=== PATIENT | male | born 1960 | race Two or more races ===

== ENCOUNTER 2022-05-02 10:16 | Observation (INO) | payer BC ==
--- NOTE | 2022-05-02 10:44 | ED ---
General Adult HPI - General Chief complaint: Recheck/Abnormal Lab/Rx Stated complaint: Recheck/Abnormal CT Time Seen by Provider: 05/02/22 10:24 Source: patient Mode of arrival: ambulatory Limitations: no limitations - History of Present Illness Initial comments: Dictation was produced using [employer] dictation software. please excuse any grammatical, word or spelling errors. Chief Complaint: 61-year-old male presents emergency department for abnormal CT History of Present Illness: 61-year-old male is instructed by his primary care doctor to come to the emergency department for an abnormal CT that was performed 3 days ago. Patient states that he had a CT performed ordered by his primary care physician for respiratory symptoms. He has been having a productive cough for the last 3 weeks. Patient had a CT performed on Thursday or Thursday. He was notified of results and was told to present to the emergency department soon as the results were available however patient delayed coming to the ER until today. Patient has any constitutional symptoms. Denies any recent travel. Denies any chest pain other symptoms may reflect pneumonia versus lung cancer. The ROS documented in this emergency department record has been reviewed and confirmed by me. Those systems with pertinent positive or negative responses have been documented in the HPI. All other systems are other negative and/or noncontributory. PHYSICAL EXAM: General Impression: Alert and oriented x3, not in acute distress HEENT: Normocephalic atraumatic, extra-ocular movements intact, pupils equal and reactive to light bilaterally, mucous membranes moist. Cardiovascular: Heart regular rate and rhythm Chest: Able to complete full sentences, no retractions, no tachypnea, clear to auscultation bilaterally Abdomen: abdomen soft, non-tender, non-distended, no organomegaly Musculoskeletal: Pulses present and equal in all extremities, no peripheral edema Motor: no focal deficits noted Neurological: CN II-XII grossly intact, no focal motor or sensory deficits noted Skin: Intact with no visualized rashes Psych: Normal affect and mood ED course: 61-year-old male presents emergency Department with abnormal computed tomography scan of the chest performed 3-4 days ago. She was performed for persistent cough. Patient was told that his symptoms may be secondary to pneumonia versus lung cancer. Vital signs upon arrival are within acceptable limits. Patient presents with the CT disc that is loaded to our PACS system. Chest x-ray obtained showing mass versus pneumonia at the right apex. Patient developed a bedside at 12:45 PM found to be stable medical condition. Patient denies any constitutional symptoms. Likely patient's clinical presentation is secondary to lung mass. Patient will be admitted with consultation to pulmonology. - Related Data Home Medications Medication Instructions Recorded Confirmed EPINEPHrine (Auto Inject) [Epipen] 0.3 mg IM ONCE PRN 05/02/22 05/02/22 Allergies Allergy/AdvReac Type Severity Reaction Status Date / Time bee venom protein (honey bee) Allergy Anaphylaxis Verified 05/02/22 12:01 Review of Systems ROS Statement: Those systems with pertinent positive or pertinent negative responses have been documented in the HPI. ROS Other: All systems not noted in ROS Statement are negative. Past Medical History Past Medical History: Hypertension, Pneumonia Past Surgical History: Hernia Repair, Orthopedic Surgery Past Psychological History: No Psychological Hx Reported Smoking Status: Current every day smoker, Heavy tobacco smoker Past Alcohol Use History: Daily Past Drug Use History: None Reported General Exam Limitations: no limitations Course Vital Signs 05/02/22 05/02/22 05/02/22 10:17 13:49 14:40 Temperature 98.1 F Pulse Rate 91 68 72 Respiratory 18 16 16 Rate Blood Pressure 164/105 151/100 142/98 O2 Sat by Pulse 95 95 96 Oximetry Medical Decision Making - Lab Data Result diagrams: 05/03/22 10:00 05/03/22 10:00 Lab Results 05/02/22 05/02/22 05/02/22 Range/Units 10:56 10:56 12:31 WBC 8.3 (3.8-10.6) k/uL RBC 4.95 (4.30-5.90) m/uL Hgb 16.0 (13.0-17.5) gm/dL Hct 47.4 (39.0-53.0) % MCV 95.6 (80.0-100.0) fL MCH 32.4 (25.0-35.0) pg MCHC 33.9 (31.0-37.0) g/dL RDW 12.2 (11.5-15.5) % Plt Count 449 (150-450) k/uL MPV 7.1 Neutrophils % 73 % Lymphocytes % 17 % Monocytes % 5 % Eosinophils % 4 % Basophils % 1 % Neutrophils # 6.0 (1.3-7.7) k/uL Lymphocytes # 1.4 (1.0-4.8) k/uL Monocytes # 0.4 (0-1.0) k/uL Eosinophils # 0.3 (0-0.7) k/uL Basophils # 0.1 (0-0.2) k/uL PT 10.1 (9.0-12.0) sec INR 0.9 (<1.2) APTT 25.5 (22.0-30.0) sec Sodium 138 (137-145) mmol/L Potassium 3.2 L (3.5-5.1) mmol/L Chloride 117 H (98-107) mmol/L Carbon Dioxide 19 L (22-30) mmol/L Anion Gap 2 mmol/L BUN 11 (9-20) mg/dL Creatinine 0.49 L (0.66-1.25) mg/dL Est GFR (CKD-EPI)AfAm >90 (>60 ml/min/1.73 sqM) Est GFR (CKD-EPI)NonAf >90 (>60 ml/min/1.73 sqM) Glucose 70 L (74-99) mg/dL Calcium 5.5 L* (8.4-10.2) mg/dL Procalcitonin (0.02-0.09) ng/mL 05/02/22 Range/Units 12:31 WBC (3.8-10.6) k/uL RBC (4.30-5.90) m/uL Hgb (13.0-17.5) gm/dL Hct (39.0-53.0) % MCV (80.0-100.0) fL MCH (25.0-35.0) pg MCHC (31.0-37.0) g/dL RDW (11.5-15.5) % Plt Count (150-450) k/uL MPV Neutrophils % % Lymphocytes % % Monocytes % % Eosinophils % % Basophils % % Neutrophils # (1.3-7.7) k/uL Lymphocytes # (1.0-4.8) k/uL Monocytes # (0-1.0) k/uL Eosinophils # (0-0.7) k/uL Basophils # (0-0.2) k/uL PT (9.0-12.0) sec INR (<1.2) APTT (22.0-30.0) sec Sodium (137-145) mmol/L Potassium (3.5-5.1) mmol/L Chloride (98-107) mmol/L Carbon Dioxide (22-30) mmol/L Anion Gap mmol/L BUN (9-20) mg/dL Creatinine (0.66-1.25) mg/dL Est GFR (CKD-EPI)AfAm (>60 ml/min/1.73 sqM) Est GFR (CKD-EPI)NonAf (>60 ml/min/1.73 sqM) Glucose (74-99) mg/dL Calcium (8.4-10.2) mg/dL Procalcitonin 0.03 (0.02-0.09) ng/mL Disposition Clinical Impression: Lung mass Disposition: ADMITTED IP TO THIS HOSP Condition: Fair
[2022-05-02 11:18] LABS: Basophils # (A) 0.1 k/uL (0-0.2); Basophils % (A) 1 %; Eosinophils # (A) 0.3 k/uL (0-0.7); Eosinophils % (A) 4 %; HCT 47.4 % (39.0-53.0); Lymphocytes # (A) 1.4 k/uL (1.0-4.8); Lymphocytes % (A) 17 %; MCH 32.4 pg (25.0-35.0); MCHC 33.9 g/dL (31.0-37.0); MCV 95.6 fL (80.0-100.0); Mean Platelet Volume 7.1; Monocytes # (A) 0.4 k/uL (0-1.0); Monocytes % (A) 5 %; Neutrophils % (A) 73 %; Platelet Count 449 k/uL (150-450); RBC 4.95 m/uL (4.30-5.90); RDW 12.2 % (11.5-15.5); WBC 8.3 k/uL (3.8-10.6)
--- NOTE | 2022-05-02 11:45 | XR ---
EXAMINATION TYPE: XR chest 1V portable DATE OF EXAM: 05/02/2022 COMPARISON: None INDICATION: Abnormal CT TECHNIQUE: Single frontal view of the chest is obtained. FINDINGS: The heart size is normal. The pulmonary vasculature is normal. There appears to be a cavitary lesion with an air-fluid level in the right upper lung field. Remainde r the lungs appear clear. IMPRESSION: 1. Nonspecific density right apex can be of mass and/or air-fluid level. Neoplasm and infection withi n the differential.
[2022-05-02 12:21] LABS: INR 0.9 (<1.2); Partial Thromboplastin Time 25.5 sec (22.0-30.0); Prothrombin Time 10.1 sec (9.0-12.0)
[2022-05-02] MEDS ORDERED: ONDANSETRON 4 MG/2 ML VIAL IVP PRN (12:36)
[2022-05-02] MEDS ORDERED: NALOXONE 0.4 MG/ML 1 ML VIAL IV PRN (12:36)
[2022-05-02 13:04] LABS: African American GFR (CKD) >90 (>60 ml/min/1.73 sqM); Anion Gap 2 mmol/L; Blood Urea Nitrogen 11 mg/dL (9-20); Carbon Dioxide 19 mmol/L (22-30); Chloride 117 mmol/L (98-107); Glucose 70 mg/dL (74-99); Non-African American GFR(CKD) >90 (>60 ml/min/1.73 sqM); Sodium 138 mmol/L (137-145)
[2022-05-02 13:31] LABS: Calcium 5.5 mg/dL (8.4-10.2)
[2022-05-02 13:32] LABS: Potassium 3.2 mmol/L (3.5-5.1)
--- NOTE | 2022-05-02 14:14 | P.CNPUL ---
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 Cough was productive initially with thick yellow and green sputum at times brownish in color, and recently his sputum has become whitish in color. Patient had minimal shortness of breath on exertion, no fever no chills, no hemoptysis, no chest pain. CT of the chest done on outpatient basis showed significant bullous disease in the right upper lobe and what seems to be a cavitating mass or a lung and the right upper lobe/infected bulla with air-fluid level. Advised by his primary care physician to come to the ER. Patient was brought in, admitted and this consult was initiated. During my evaluation, the patient was basically asymptomatic. He had no fever, no chills, no hemoptysis, and his O2 saturation was 95% on room air. Patient was started on antibiotics empirically sputum cultures are pending, pro-calcitonin level is pending, CBC showed no evidence of leukocytosis, his electrolytes are basically unremarkable except for low potassium of 3.2, patient had low calcium of 5.5. Review of Systems Constitutional: Minimal weight loss no fever no chills HEENT: Negative Pulmonary: As noted in HPI mostly cough Cardiac: Negative GI: Negative Genitourinary: Negative Muscular skeletal: Negative Psychiatric: Negative Endocrine: Negative Neurologic: Negative Skin: No Past Medical History Past Medical History: Hypertension, Pneumonia Past Surgical History: Hernia Repair, Orthopedic Surgery Past Psychological History: No Psychological Hx Reported Smoking Status: Current every day smoker, Heavy tobacco smoker Past Alcohol Use History: Daily Past Drug Use History: None Reported Medications and Allergies Home Medications Medication Instructions Recorded Confirmed Type EPINEPHrine (Auto Inject) [Epipen] 0.3 mg IM ONCE PRN 05/02/22 05/02/22 History Allergies Allergy/AdvReac Type Severity Reaction Status Date / Time bee venom protein (honey bee) Allergy Anaphylaxis Verified 05/02/22 12:01 Physical Exam Vitals: Vital Signs Temp Pulse Resp BP Pulse Ox 05/02/22 13:49 68 16 151/100 95 05/02/22 10:17 98.1 F 91 18 164/105 95 Intake and Output 05/01/22 05/02/22 05/02/22 22:59 06:59 14:59 Other: Weight 75.75 kg Physical Exam: Revealed a 61-year-old white male in no distress on room air. Head: Atraumatic, normocephalic. HEENT:[Neck is supple.] [No neck masses.] [No thyromegaly.] [No JVD.] Chest: [Clear throughout, no crackles, no rhonchi, no wheezes.] Cardiac Exam: [Normal S1 and S2, no S3 gallop, no murmur.] Abdomen: [Soft, nontender, no megaly, no rebound, no guarding, normal bowel sounds.] Extremities: [No clubbing, no edema, no cyanosis.] Neurological Exam: [No focal neurologic deficit.] Alert oriented 3 Psychiatric: Normal mood, affect and normal mental status examination. Skin: No rashes. Results - Laboratory Findings CBC and BMP: 05/02/22 10:56 05/02/22 12:31 PT/INR, D-dimer PT 10.1 sec (9.0-12.0) 05/02/22 10:56 INR 0.9 (<1.2) 05/02/22 10:56 Abnormal lab findings: Abnormal Labs 05/02/22 12:31 Potassium 3.2 L Chloride 117 H Carbon Dioxide 19 L Creatinine 0.49 L Glucose 70 L Calcium 5.5 L* - Diagnostic Findings CT scan - chest: image reviewed (As noted in HPI) Assessment and Plan Assessment: Impression: Right upper lobe cavitary lesion, exact etiology is not clear, however the differential diagnoses includes lung abscess, infected bulla, cavitating malignancy involving the right upper lobe. 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 And close follow-up on outpatient basis We will continue to follow. Time with Patient: Greater than 30
[2022-05-02] MEDS: SODIUM CHLORIDE 0.9% 1,000 ML IV SCH (16:07)
[2022-05-02] MEDS: PIPERACILLIN-TAZOBACTAM 3.375 GM in SODIUM CHLORIDE 0.9% 100 ML IVPB SCH ×2 (16:08→23:43)
[2022-05-02] MEDS: IPRATROPIUM-ALBUTEROL 3 ML NEB INHALATION SCH ×2 (16:25→19:43)
[2022-05-03] MEDS: IPRATROPIUM-ALBUTEROL 3 ML NEB INHALATION SCH ×4 (07:14→19:05)
--- NOTE | 2022-05-03 07:19 | P.CONS ---
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 with productive thick yellow sputum that has been going on for almost a month patient apparently did have a CT of the chest done at [facility] with the patient was noticed to have a cavitating mass right upper lobe with air-fluid level concerning for possible abscess and the patient was advised to go to the ER, patient currently denies having any fever or any chills patient main symptom remains to be cough moderate intensity and is bringing up some purulent sputum no hemoptysis denies any pleuritic chest pain the patient denies having any choking on the food no nausea no vomiting no abdominal pain or any diarrhea on presentation to the hospital the patient has been afebrile and no fever have been recorded subsequently patient did have a normal white count with no left shift creatinine is normal calcium was low procalcitonin normal chronic culture was negative patient did have a chest x-ray nonspecific density right apex cannot be mass and or air-fluid level patient was started on Zosyn has been admitted to the hospital infectious disease was consulted for further management of antibiotic therapy Review of Systems Positive point has been mentioned in the HPI rest of the systems are negative Past Medical History Past Medical History: Hypertension, Pneumonia Past Surgical History: Hernia Repair, Orthopedic Surgery Past Psychological History: No Psychological Hx Reported Smoking Status: Current every day smoker, Heavy tobacco smoker Past Alcohol Use History: Daily Past Drug Use History: None Reported Medications and Allergies Home Medications Medication Instructions Recorded Confirmed Type EPINEPHrine (Auto Inject) [Epipen] 0.3 mg IM ONCE PRN 05/02/22 05/02/22 History Allergies Allergy/AdvReac Type Severity Reaction Status Date / Time bee venom protein (honey bee) Allergy Anaphylaxis Verified 05/02/22 12:01 Physical Exam Vitals: Vital Signs Temp Pulse Resp BP Pulse Ox 05/02/22 13:49 68 16 151/100 95 05/02/22 10:17 98.1 F 91 18 164/105 95 Intake and Output 05/01/22 05/02/22 05/02/22 22:59 06:59 14:59 Other: Weight 75.75 kg GENERAL DESCRIPTION: Middle-aged male lying in bed, no distress. No tachypnea or accessory muscle of respiration use. HEENT: Shows Pallor , no scleral icterus. Oral mucous membrane is dry. No pharyngeal erythema or thrush NECK: Trachea central, no thyromegaly. LUNGS: Unlabored breathing. Decreased intensity of breath sounds. No wheeze or crackle. HEART: S1, S2, regular rate and rhythm. No loud murmur ABDOMEN: Soft, no tenderness , guarding or rigidity, no organomegaly EXTREMITIES: No edema of feet. SKIN: No rash, no masses palpable. NEUROLOGICAL: The patient is awake, alert, oriented x3, mood and affect normal. Results CBC & Chem 7: 05/02/22 10:56 05/02/22 12:31 Labs: Abnormal Lab Results - Last 24 Hours (Table) 05/02/22 Range/Units 12:31 Potassium 3.2 L (3.5-5.1) mmol/L Chloride 117 H (98-107) mmol/L Carbon Dioxide 19 L (22-30) mmol/L Creatinine 0.49 L (0.66-1.25) mg/dL Glucose 70 L (74-99) mg/dL Calcium 5.5 L* (8.4-10.2) mg/dL Assessment and Plan (1) Abnormal CT of the chest Current Visit: Yes Status: Acute Code(s): R93.89 - ABNORMAL FINDINGS ON DX IMAGING OF OTH BODY STRUCTURES SNOMED Code(s): 79411853794791314 Plan: 1patient presented to hospital with abnormal CT done in the outpatient setting with evidence of possible right upper lobe mass with air-fluid level in this patient with significant history of smoking no fever elevated white count and normal procalcitonin high clinical suspicious for malignancy. 2sputum culture has been requested and will be followed. 3patient will benefit from bronchoscopy with transbronchial biopsy as well as cultures. 4continue with empiric Zosyn while awaiting further work-up to be completed. We will follow on clinical condition and cultures to further adjust medication if needed Thank you for this consultation will follow this patient along with you Time with Patient: Greater than 30
[2022-05-03] MEDS: PIPERACILLIN-TAZOBACTAM 3.375 GM in SODIUM CHLORIDE 0.9% 100 ML IVPB SCH ×3 (07:49→23:28)
--- NOTE | 2022-05-03 08:34 | XR ---
EXAMINATION TYPE: XR chest 1V portable DATE OF EXAM: 05/03/2022 COMPARISON: 05/02/2022 INDICATION: Right upper lobe pneumonia TECHNIQUE: Single frontal view of the chest is obtained. FINDINGS: The heart size is normal. The pulmonary vasculature is normal. Right upper lobe consolidation is again evident. The air-fluid level is not as apparent. There is air -fluid level at the right base which appears better visualized on the current exam. This is not evide nt on the outside CT of 04/29/2022. Differential includes infection and mass. IMPRESSION: 1. Right upper lobe consolidation or mass. Better visualized may be an air-fluid level of the right b ase. Additional workup is recommended.
[2022-05-03 10:24] LABS: Basophils % (A) 0 %; Eosinophils # (A) 0.2 k/uL (0-0.7); Eosinophils % (A) 2 %; HCT 46.5 % (39.0-53.0); HGB 15.2 gm/dL (13.0-17.5); Lymphocytes % (A) 12 %; MCH 31.3 pg (25.0-35.0); MCHC 32.6 g/dL (31.0-37.0); Mean Platelet Volume 7.1; Monocytes # (A) 0.3 k/uL (0-1.0); Monocytes % (A) 4 %; Neutrophils # (A) 6.8 k/uL (1.3-7.7); Neutrophils % (A) 82 %; Platelet Count 421 k/uL (150-450); RBC 4.84 m/uL (4.30-5.90); WBC 8.4 k/uL (3.8-10.6)
[2022-05-03 10:33] LABS: ALT 17 U/L (4-49); AST 20 U/L (17-59); African American GFR (CKD) >90 (>60 ml/min/1.73 sqM); Albumin 3.1 g/dL (3.5-5.0); Albumin/Globulin Ratio 1.1; Alkaline Phosphatase 97 U/L (38-126); Anion Gap 6 mmol/L; Blood Urea Nitrogen 14 mg/dL (9-20); Calcium 8.3 mg/dL (8.4-10.2); Carbon Dioxide 26 mmol/L (22-30); Chloride 104 mmol/L (98-107); Globulin 2.9 g/dL; Glucose 224 mg/dL (74-99); Non-African American GFR(CKD) >90 (>60 ml/min/1.73 sqM); Potassium 3.9 mmol/L (3.5-5.1); Sodium 136 mmol/L (137-145); Total Bilirubin 0.2 mg/dL (0.2-1.3)
[2022-05-03 12:09] VITALS: BMI 22.6
--- NOTE | 2022-05-03 12:32 | P.PN ---
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 Cough was productive initially with thick yellow and green sputum at times brownish in color, and recently his sputum has become whi nahomi in color. Patient had minimal shortness of breath on exertion, no fever no chills, no hemoptysis, no chest pain. CT of the chest done on outpatient basis showed significant bullous disease in the right upper lobe and what seems to be a cavitating mass or a lung and the right upper lobe/infected bulla with air- fluid level. Advised by his primary care physician to come to the ER. Patient was brought in, admitted and this consult was initiated. During my evaluation, the patient was basically asymptomatic. He had no fever, no chills, no hemoptysis, and his O2 saturation was 95% on room air. Patient was started on antibiotics empirically sputum cultures are pending, pro-calcitonin level is pending, CBC showed no evidence of leukocytosis, his electrolytes are basically unremarkable except for low potassium of 3.2, patient had low calcium of 5.5. On 05/03/2022 patient seen in follow-up on medical surgical floor. He is resting comfortably in bed, he is on room air, pulse ox is 96%, afebrile, breathing comfortably, denies any specific complaints, no complaints of chest discomfort, vital signs have been stable. Follow-up chest x-ray today showing right upper lobe consolidation with air fluid level of the right base. Pro- calcitonin level was within normal limits at 0.03, CBC was completely within normal limits, sodium is 136, the rest of the electrolytes are within normal limits, CRP is 3.3. Patient remains on Zosyn empirically and breathing treatments. ID service is on the case, sputum culture is pending, Gram stain shows no organisms thus far, blood culture is pending Objective - Vital Signs Vital signs: Vital Signs Temp 97.9 F 05/03/22 11:29 Pulse 82 05/03/22 11:29 Resp 14 05/03/22 11:29 BP 134/85 05/03/22 11:29 Pulse Ox 96 05/03/22 11:29 FiO2 Intake & Output 05/02/22 05/03/22 05/03/22 18:59 06:59 18:59 Intake Total 296 800 Balance 296 800 Weight 75.75 kg 75.75 kg Intake: Intake, IV Titration 200 Amount Piperacillin-Tazobactam 3 200 .375 gm In Sodium Chloride 0.9% 100 ml @ 25 mls/hr IVPB Q8HR [facility] Rx# :[id number] Oral 296 600 Other: Voiding Method Toilet Toilet # Voids 1 2 - Exam GENERAL EXAM: Alert, very pleasant, 61-year-old white male resting comfortably in bed, room air with pulse ox of 96% comfortable in no apparent distress. HEAD: Normocephalic/atraumatic. EYES: Normal reaction of pupils, equal size. Conjunctiva pink, sclera white. NOSE: Clear with pink turbinates. THROAT: No erythema or exudates. NECK: No masses, no JVD, no thyroid enlargement, no adenopathy. CHEST: No chest wall deformity. Symmetrical expansion. LUNGS: Equal air entry with no crackles, wheeze, rhonchi or dullness. CVS: Regular rate and rhythm, normal S1 and S2, no gallops, no murmurs, no rubs ABDOMEN: Soft, nontender. No hepatosplenomegaly, normal bowel sounds, no guarding or rigidity. EXTREMITIES: No clubbing, no edema, no cyanosis, 2+ pulses and upper and lower extremities. MUSCULOSKELETAL: Muscle strength and tone normal. SPINE: No scoliosis or deformity SKIN: No rashes CENTRAL NERVOUS SYSTEM: Alert and oriented -3. No focal deficits, tone is normal in all 4 extremities. PSYCHIATRIC: Alert and oriented -3. Appropriate affect. Intact judgment and insight. - Labs CBC & Chem 7: 05/03/22 10:00 05/03/22 10:00 Labs: Abnormal Lab Results - Last 24 Hours (Table) 05/02/22 05/02/22 05/03/22 Range/Units 12:31 14:48 10:00 Sodium 136 L (137-145) mmol/L Potassium 3.2 L (3.5-5.1) mmol/L Chloride 117 H (98-107) mmol/L Carbon Dioxide 19 L (22-30) mmol/L Creatinine 0.49 L (0.66-1.25) mg/dL Glucose 70 L 224 H (74-99) mg/dL Calcium 5.5 L* 8.3 L (8.4-10.2) mg/dL C-Reactive Protein 3.30 H (0.00-0.80) mg/dL Total Protein 6.0 L (6.3-8.2) g/dL Albumin 3.1 L (3.5-5.0) g/dL Microbiology - Last 24 Hours (Table) 05/02/22 Unknown Gram Stain - Preliminary Sputum Sputum Culture - Preliminary Assessment and Plan Plan: Assessment: #1. Right upper lobe cavitary lesion, with unknown etiology with a differential diagnoses including a lung abscess, infected bulla, cavitating malignancy involving the right upper lobe #2. 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 Tobacco dependence syndrome #4. History of hypertension Plan: Serum pro-calcitonin level came back negative Today's labs have been reviewed, No fever or chills No growth on the sputum culture We will consider bronchoscopy with BAL on Thursday with Dr. Villegas This was discussed with the patient who was agreeable to proceed In the meantime patient will continue on antibiotics ID service recommendations We'll also need outpatient PET scan I have personally seen and examined the patient, performed the documentation and the assessment and plan as written. Number of minutes spent on the visit: [10] Time with Patient: Less than 30
[2022-05-03] MEDS ORDERED: HYDROcodone/APAP 5-325MG 1 EACH TAB PO PRN (13:23)
[2022-05-03] MEDS ORDERED: LORazepam 0.5 MG TAB PO PRN (13:23)
[2022-05-03] MEDS ORDERED: ALPRAZolam 0.25 MG TAB PO PRN (13:23)
[2022-05-03] MEDS: HEPARIN SODIUM,PORCINE/PF 5,000 UNIT/0.5 ML SYRINGE SQ SCH ×2 (14:14→19:33)
--- NOTE | 2022-05-03 15:24 | HP ---
HISTORY AND PHYSICAL CHIEF COMPLAINTS: Cough, sputum and right upper lobe lung cavitary lesion with abscess with possible HISTORY OF PRESENT ILLNESS: This 61-year-old gentleman with a past medical history of hypertension, history of pneumonia, being followed by Dr. Marin in the outpatient setting, was not feeling well for the past several days. Patient had a cough the patient came to [facility]. CT scan and chest x-ray showed right upper lobe cavitary lesion, mass versus abscess. Dr. Velasquez saw the patient and is planning bronchoscopy on Thursday. Patient is on broad-spectrum IV antibiotics. There is no history of chest pain or palpitations. PAST MEDICAL HISTORY: Past medical history includes hypertension and pneumonia. HOME MEDICATIONS: Reviewed. They include EpiPen p.r.n. ALLERGIES: BEE VENOM. FAMILY HISTORY: No history of heart disease or strokes in the family. SOCIAL HISTORY: Alcohol and smoking. REVIEW OF SYSTEMS: Fourteen-point review of systems negative except as mentioned earlier. PHYSICAL EXAMINATION: Pulse 82, blood pressure 133/84, respiration 14. HEENT: Conjunctivae normal. NECK: No jugular venous distention. CARDIOVASCULAR: S1, S2 muffled. RESPIRATION: Breath sounds diminished at the bases. A few scattered rhonchi and crackles. Expiratory wheezing. ABDOMEN: Soft, nontender. LEGS: No edema. No swelling. NERVOUS SYSTEM: No focal deficit. SKIN: No ulcer, rash, bleeding. JOINTS: No active deforming arthropathy. LABS: CBC within normal limits. Other labs are noted. ASSESSMENT: 1. Right upper lobe cavitary lesion, possibly lung abscess versus mass lesion. 2. Hypertension. 3. History of pneumonia. RECOMMENDATIONS AND DISCUSSION: In this 61-year-old gentleman who presented with multiple complex medical issues, we will monitor the patient closely. Continue the broad-spectrum IV antibiotics. Cultures. Follow closely with Pulmonary. DVT prophylaxis. Bronchoscopy and possible biopsy. Prognosis guarded. Further recommendations to follow. MMODL / IJN: [id number] / MTDD
[2022-05-03] MEDS: SODIUM CHLORIDE 0.9% 1,000 ML IV SCH (17:12)
[2022-05-03] MEDS: TEMAZEPAM 15 MG CAP PO PRN (21:06)
--- NOTE | 2022-05-03 21:59 | P.PN ---
Subjective Progress Note Date: 05/03/22 Principal diagnosis: Pneumonia versus tumor Patient is a 61 year old male with significant history of smoking, did have a workup in the outpatient setting for cough that has been going on for about a month with evidence of right upper lobe necrotic tumor versus pneumonia. On today's evaluation that is 05/03/2022, the patient denies having any fever or chills, the patient is breathing more comfortably patient denies having any chest pain he Did have a cough and is bringing up some sputum no hemoptysis. No abdominal pain and no diarrhea Objective - Vital Signs Vital signs: Vital Signs Temp 97.9 F 05/03/22 11:29 Pulse 82 05/03/22 11:29 Resp 14 05/03/22 11:29 BP 134/85 05/03/22 11:29 Pulse Ox 96 05/03/22 11:29 FiO2 Intake & Output 05/02/22 05/03/22 05/03/22 18:59 06:59 18:59 Intake Total 296 800 Balance 296 800 Weight 75.75 kg 75.75 kg Intake: Intake, IV Titration 200 Amount Piperacillin-Tazobactam 3 200 .375 gm In Sodium Chloride 0.9% 100 ml @ 25 mls/hr IVPB Q8HR [facility] Rx# :[id number] Oral 296 600 Other: Voiding Method Toilet Toilet # Voids 1 2 - Exam GENERAL DESCRIPTION: Middle-age male lying in bed in no distress RESPIRATORY SYSTEM: Unlabored breathing , decreased breath sounds at bases HEART: S1 S2 regular rate and rhythm , ABDOMEN: Soft , no tenderness EXTREMITIES: No edema feet - Labs CBC & Chem 7: 05/03/22 10:00 05/03/22 10:00 Labs: Abnormal Lab Results - Last 24 Hours (Table) 05/02/22 05/02/22 05/03/22 Range/Units 12:31 14:48 10:00 Sodium 136 L (137-145) mmol/L Potassium 3.2 L (3.5-5.1) mmol/L Chloride 117 H (98-107) mmol/L Carbon Dioxide 19 L (22-30) mmol/L Creatinine 0.49 L (0.66-1.25) mg/dL Glucose 70 L 224 H (74-99) mg/dL Calcium 5.5 L* 8.3 L (8.4-10.2) mg/dL C-Reactive Protein 3.30 H (0.00-0.80) mg/dL Total Protein 6.0 L (6.3-8.2) g/dL Albumin 3.1 L (3.5-5.0) g/dL Microbiology - Last 24 Hours (Table) 05/02/22 Unknown Gram Stain - Preliminary Sputum Sputum Culture - Preliminary Assessment and Plan (1) Abnormal CT of the chest Current Visit: Yes Status: Acute Code(s): R93.89 - ABNORMAL FINDINGS ON DX IMAGING OF OTH BODY STRUCTURES SNOMED Code(s): 95707296026014814 Plan: 1patient presented to hospital with abnormal CT done in the outpatient setting with evidence of possible right upper lobe mass with air-fluid level in this patient with significant history of smoking no fever elevated white count and normal procalcitonin high clinical suspicious for malignancy. 2sputum culture has been obtained and currently pending 3patient at that is scheduled for bronchoscopy with transbronchial biopsy as well as cultures on Thursday 4patient to continue with empiric Zosyn while awaiting further work-up to be completed. Time with Patient: Less than 30
[2022-05-04] MEDS: IPRATROPIUM-ALBUTEROL 3 ML NEB INHALATION SCH ×4 (07:09→19:30)
[2022-05-04] MEDS: HEPARIN SODIUM,PORCINE/PF 5,000 UNIT/0.5 ML SYRINGE SQ SCH ×2 (08:58→19:00)
[2022-05-04] MEDS: PIPERACILLIN-TAZOBACTAM 3.375 GM in SODIUM CHLORIDE 0.9% 100 ML IVPB SCH ×3 (09:01→23:38)
[2022-05-04] MEDS: PANTOPRAZOLE 40 MG TABLET PO SCH (09:01)
[2022-05-04 09:23] LABS: Basophils # (A) 0.08 X 10*3/uL (0.00-0.10); Basophils % (A) 0.9 %; Eosinophils # (A) 0.31 X 10*3/uL (0.04-0.35); Eosinophils % (A) 3.6 %; HGB 15.4 g/dL (13.0-17.0); Immature Grans, Automated 0.2 %; Lymphocytes # (A) 1.66 X 10*3/uL (0.90-5.00); Lymphocytes % (A) 19.5 %; MCHC 32.8 g/dL (32.0-37.0); MCV 94.6 fL (80.0-97.0); Monocytes # (A) 0.69 X 10*3/uL (0.20-1.00); Monocytes % (A) 8.1 %; NRBC Per 100 WBC 0 /100 WBCS (0.0-0.0); Neutrophils # (A) 5.75 X 10*3/uL (1.80-7.70); Neutrophils % (A) 67.7 %; Platelet Count 396 X 10*3/uL (140-440); RBC 4.97 X 10*6/uL (4.40-5.60); RDW 12.8 % (11.5-14.5); WBC 8.51 X 10*3/uL (4.50-10.00)
[2022-05-04 10:02] LABS: African American GFR (CKD) 99.7 (60.0-200.0); Anion Gap 9.6 mmol/L (10.00-18.00); BUN/Creat Ratio 13.63 Ratio (12.00-20.00); Blood Urea Nitrogen 13.1 mg/dL (9.0-27.0); Calcium 8.9 mg/dL (8.7-10.3); Carbon Dioxide 24.3 mmol/L (20.0-27.5); Non-African American GFR(CKD) 86.1 (60.0-200.0); Potassium 4.9 mmol/L (3.5-5.5)
--- NOTE | 2022-05-04 11:30 | P.PN ---
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 Cough was productive initially with thick yellow and green sputum at times brownish in color, and recently his sputum has become whi nahomi in color. Patient had minimal shortness of breath on exertion, no fever no chills, no hemoptysis, no chest pain. CT of the chest done on outpatient basis showed significant bullous disease in the right upper lobe and what seems to be a cavitating mass or a lung and the right upper lobe/infected bulla with air- fluid level. Advised by his primary care physician to come to the ER. Patient was brought in, admitted and this consult was initiated. During my evaluation, the patient was basically asymptomatic. He had no fever, no chills, no hemoptysis, and his O2 saturation was 95% on room air. Patient was started on antibiotics empirically sputum cultures are pending, pro-calcitonin level is pending, CBC showed no evidence of leukocytosis, his electrolytes are basically unremarkable except for low potassium of 3.2, patient had low calcium of 5.5. On 05/03/2022 patient seen in follow-up on medical surgical floor. He is resting comfortably in bed, he is on room air, pulse ox is 96%, afebrile, breathing comfortably, denies any specific complaints, no complaints of chest discomfort, vital signs have been stable. Follow-up chest x-ray today showing right upper lobe consolidation with air fluid level of the right base. Pro- calcitonin level was within normal limits at 0.03, CBC was completely within normal limits, sodium is 136, the rest of the electrolytes are within normal limits, CRP is 3.3. Patient remains on Zosyn empirically and breathing treatments. ID service is on the case, sputum culture is pending, Gram stain shows no organisms thus far, blood culture is pending On 05/04/2022 patient seen in follow-up on medical surgical floor. He is resting comfortably in bed, starting to cough up some phlegm. Vital signs have been stable, room air pulse ox is 93%, afebrile. Denies any hemoptysis or chest discomfort. Today's labs have been reviewed. Serum pro-calcitonin level was negative at 0.03, white count is normal at 8.5, electrolytes and renal profile are unremarkable. Sputum and blood cultures showed no growth. Patient remains on nebulized bronchodilators, and Zosyn for empiric antibiotic coverage. We discussed bronchoscopy with BAL and possible biopsies tomorrow on 05/05/2022, patient is agreeable to proceed Objective - Vital Signs Vital signs: Vital Signs Temp 97.7 F 05/04/22 04:08 Pulse 85 05/04/22 11:14 Resp 18 05/04/22 08:00 BP 130/88 05/04/22 04:08 Pulse Ox 93 L 05/04/22 07:11 FiO2 Intake & Output 05/03/22 05/04/22 05/04/22 18:59 06:59 18:59 Intake Total 480 800 Balance 480 800 Weight 75.75 kg Intake: Intake, IV Titration 200 Amount Piperacillin-Tazobactam 3 200 .375 gm In Sodium Chloride 0.9% 100 ml @ 25 mls/hr IVPB Q8HR [facility] Rx# :[id number] Oral 480 600 Other: Voiding Method Toilet Toilet Toilet # Voids 5 2 - Exam GENERAL EXAM: Alert, very pleasant, 61-year-old white male resting comfortably in bed, room air with pulse ox of 96% comfortable in no apparent distress. HEAD: Normocephalic/atraumatic. EYES: Normal reaction of pupils, equal size. Conjunctiva pink, sclera white. NOSE: Clear with pink turbinates. THROAT: No erythema or exudates. NECK: No masses, no JVD, no thyroid enlargement, no adenopathy. CHEST: No chest wall deformity. Symmetrical expansion. LUNGS: Equal air entry with no crackles, wheeze, rhonchi or dullness. CVS: Regular rate and rhythm, normal S1 and S2, no gallops, no murmurs, no rubs ABDOMEN: Soft, nontender. No hepatosplenomegaly, normal bowel sounds, no guarding or rigidity. EXTREMITIES: No clubbing, no edema, no cyanosis, 2+ pulses and upper and lower extremities. MUSCULOSKELETAL: Muscle strength and tone normal. SPINE: No scoliosis or deformity SKIN: No rashes CENTRAL NERVOUS SYSTEM: Alert and oriented -3. No focal deficits, tone is normal in all 4 extremities. PSYCHIATRIC: Alert and oriented -3. Appropriate affect. Intact judgment and insight. - Labs CBC & Chem 7: 05/04/22 04:23 05/04/22 04:23 Labs: Abnormal Lab Results - Last 24 Hours (Table) 05/04/22 05/04/22 Range/Units 04:23 04:23 MPV 9.0 L (9.5-12.2) fL Anion Gap 9.60 L (10.00-18.00) mmol/L Microbiology - Last 24 Hours (Table) 05/02/22 14:48 Blood Culture - Preliminary Blood No Growth after 24 hours 05/02/22 Unknown Gram Stain - Preliminary Sputum Sputum Culture - Preliminary Assessment and Plan Plan: Assessment: #1. Right upper lobe cavitary lesion, with unknown etiology with a differential diagnoses including a lung abscess, infected bulla, cavitating malignancy involving the right upper lobe #2. 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 Tobacco dependence syndrome #4. History of hypertension Plan: Today's labs have been reviewed, No leukocytosis, no fever or chills, serum pro-calcitonin is negative Continue with Zosyn for empiric antibiotic coverage Nothing by mouth after midnight Patient is agreeable to proceed with bronchoscopy and BAL possible biopsies on Thursday with Dr. Villegas If he tolerates procedure well,and remains stable he may be considered for discharge home later tomorrow after the bronch Outpatient follow-up with Dr. Rankin in the office in 7-10 days PET scan will be set up on outpatient basis I have personally seen and examined the patient, performed the documentation and the assessment and plan as written. Number of minutes spent on the visit: [10] Time with Patient: Less than 30
[2022-05-04] MEDS: MULTIVITAMINS, THERA 1 EACH TAB PO SCH (12:57)
--- NOTE | 2022-05-04 15:08 | PN ---
PROGRESS NOTE DATE OF SERVICE: 05/04/2022 This 61-year-old gentleman admitted with a left upper lobe cavitary lesion is scheduled to have bronchoscopy and possible biopsy by Pulmonology tomorrow. No chest pain. No palpitations. PHYSICAL EXAMINATION: Pulse is 87, blood pressure 134/80, respirations 16. HEENT: Conjunctivae normal. NECK: No jugular venous distention. CARDIOVASCULAR: S1, S2 muffled. RESPIRATION: Breath sounds diminished at the bases. A few scattered rhonchi. Breath sounds diminished in the right upper quadrant. ABDOMEN: Soft. NERVOUS SYSTEM: No focal deficit. LABS: Reviewed. CBC and BMP normal. ASSESSMENT: 1. Acute right upper lobe cavitary lesion; possible lung abscess versus mass lesion. 2. Hypertension. 3. History of pneumonia. RECOMMENDATIONS AND DISCUSSION: I recommend to continue current medications, continue with the monitoring, symptomatic treatment. Continue with the broad-spectrum IV antibiotics. Bronchoscopy and possible biopsy per Pulmonology Dr. Velasquez. Guarded prognosis. Further recommendations to follow. MMODL / IJN: [id number] /
[2022-05-04] MEDS: NICOTINE 21MG/24HR PATCH TRANSDERM SCH (16:23)
[2022-05-04] MEDS: SODIUM CHLORIDE 0.9% 1,000 ML IV SCH (16:26)
[2022-05-04] MEDS: TEMAZEPAM 15 MG CAP PO PRN (21:43)
[2022-05-05] MEDS: PIPERACILLIN-TAZOBACTAM 3.375 GM in SODIUM CHLORIDE 0.9% 100 ML IVPB SCH (07:55)
[2022-05-05] MEDS: HEPARIN SODIUM,PORCINE/PF 5,000 UNIT/0.5 ML SYRINGE SQ SCH (07:55)
[2022-05-05] MEDS: PANTOPRAZOLE 40 MG TABLET PO SCH (07:55)
[2022-05-05] MEDS: NICOTINE 21MG/24HR PATCH TRANSDERM SCH (07:55)
[2022-05-05] MEDS: IPRATROPIUM-ALBUTEROL 3 ML NEB INHALATION SCH ×2 (08:36→11:53)
[2022-05-05] MEDS ORDERED: MIDAZOLAM 2 MG/2 ML VIAL ONE (10:14)
[2022-05-05] MEDS ORDERED: PROPOFOL 10 MG/ML 20 ML VIAL IV ONE (10:14)
[2022-05-05] MEDS ORDERED: fentaNYL (PF) 50 MCG/ML 2 ML AMP ONE (10:14)
[2022-05-05] MEDS ORDERED: LIDOCAINE 2% INJ 20 MG/ML (2 ML VIAL) ONE (10:14)
[2022-05-05] MEDS ORDERED: IV FLUID CONTINUATION 600 ML IV ONE (10:14)
--- NOTE | 2022-05-05 10:30 | P.PN ---
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 Cough was productive initially with thick yellow and green sputum at times brownish in color, and recently his sputum has become whi nahomi in color. Patient had minimal shortness of breath on exertion, no fever no chills, no hemoptysis, no chest pain. CT of the chest done on outpatient basis showed significant bullous disease in the right upper lobe and what seems to be a cavitating mass or a lung and the right upper lobe/infected bulla with air- fluid level. Advised by his primary care physician to come to the ER. Patient was brought in, admitted and this consult was initiated. During my evaluation, the patient was basically asymptomatic. He had no fever, no chills, no hemoptysis, and his O2 saturation was 95% on room air. Patient was started on antibiotics empirically sputum cultures are pending, pro-calcitonin level is pending, CBC showed no evidence of leukocytosis, his electrolytes are basically unremarkable except for low potassium of 3.2, patient had low calcium of 5.5. On 05/03/2022 patient seen in follow-up on medical surgical floor. He is resting comfortably in bed, he is on room air, pulse ox is 96%, afebrile, breathing comfortably, denies any specific complaints, no complaints of chest discomfort, vital signs have been stable. Follow-up chest x-ray today showing right upper lobe consolidation with air fluid level of the right base. Pro- calcitonin level was within normal limits at 0.03, CBC was completely within normal limits, sodium is 136, the rest of the electrolytes are within normal limits, CRP is 3.3. Patient remains on Zosyn empirically and breathing treatments. ID service is on the case, sputum culture is pending, Gram stain shows no organisms thus far, blood culture is pending On 05/04/2022 patient seen in follow-up on medical surgical floor. He is resting comfortably in bed, starting to cough up some phlegm. Vital signs have been stable, room air pulse ox is 93%, afebrile. Denies any hemoptysis or chest discomfort. Today's labs have been reviewed. Serum pro-calcitonin level was negative at 0.03, white count is normal at 8.5, electrolytes and renal profile are unremarkable. Sputum and blood cultures showed no growth. Patient remains on nebulized bronchodilators, and Zosyn for empiric antibiotic coverage. We discussed bronchoscopy with BAL and possible biopsies tomorrow on 05/05/2022, patient is agreeable to proceed On 05/05/2022 patient seen in follow-up on medical surgical floor. He is resting comfortably in bed, completely asymptomatic, denies any cough denies any phlegm production, remains on empiric antibiotics with Zosyn. Patient is schedu led for bronchial BAL and possible biopsies today, his had no acute events overnight, no compressive chest discomfort or hemoptysis, vitals have been stable. Objective - Vital Signs Vital signs: Vital Signs Temp 98.3 F 05/05/22 04:32 Pulse 75 05/05/22 08:47 Resp 18 05/05/22 04:32 BP 122/83 05/05/22 04:32 Pulse Ox 95 05/05/22 08:36 FiO2 Intake & Output 05/04/22 05/05/22 05/05/22 18:59 06:59 18:59 Intake Total 580 500 Balance 580 500 Intake: Intake, IV Titration 340 200 Amount Piperacillin-Tazobactam 3 100 200 .375 gm In Sodium Chloride 0.9% 100 ml @ 25 mls/hr IVPB Q8HR [facility] Rx# :[id number] Sodium Chloride 0.9% 1, 240 000 ml @ 20 mls/hr IV . Q24H [facility] Rx#:[id number] Oral 240 300 Other: Voiding Method Toilet Toilet Toilet # Voids 1 3 - Exam GENERAL EXAM: Alert, very pleasant, 61-year-old white male resting comfortably in bed, room air with pulse ox of 96% comfortable in no apparent distress. HEAD: Normocephalic/atraumatic. EYES: Normal reaction of pupils, equal size. Conjunctiva pink, sclera white. NOSE: Clear with pink turbinates. THROAT: No erythema or exudates. NECK: No masses, no JVD, no thyroid enlargement, no adenopathy. CHEST: No chest wall deformity. Symmetrical expansion. LUNGS: Equal air entry with no crackles, wheeze, rhonchi or dullness. CVS: Regular rate and rhythm, normal S1 and S2, no gallops, no murmurs, no rubs ABDOMEN: Soft, nontender. No hepatosplenomegaly, normal bowel sounds, no guarding or rigidity. EXTREMITIES: No clubbing, no edema, no cyanosis, 2+ pulses and upper and lower extremities. MUSCULOSKELETAL: Muscle strength and tone normal. SPINE: No scoliosis or deformity SKIN: No rashes CENTRAL NERVOUS SYSTEM: Alert and oriented -3. No focal deficits, tone is normal in all 4 extremities. PSYCHIATRIC: Alert and oriented -3. Appropriate affect. Intact judgment and insight. - Labs CBC & Chem 7: 05/04/22 04:23 05/04/22 04:23 Labs: Microbiology - Last 24 Hours (Table) 05/02/22 14:48 Blood Culture - Preliminary Blood No Growth after 48 hours 05/02/22 Unknown Gram Stain - Final Sputum Sputum Culture - Final Assessment and Plan Plan: Assessment: #1. Right upper lobe cavitary lesion, with unknown etiology with a differential diagnoses including a lung abscess, infected bulla, cavitating malignancy involving the right upper lobe #2. 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 Tobacco dependence syndrome #4. History of hypertension Plan: Patient has been stable, without specific complaints Patient is scheduled for bronchoscopy and BAL possible biopsies today with Dr. Villegas If he tolerates procedure well,and remains stable he may be considered for discharge home after the bronch Patient can finish outpatient course of Augmentin 875/125 twice a day for 6 more days Outpatient follow-up with Dr. Rankin in the office in 7-10 days PET scan will be set up on outpatient basis I have personally seen and examined the patient, performed the documentation and the assessment and plan as written. Number of minutes spent on the visit: [10] Time with Patient: Less than 30
[2022-05-05 11:59] VITALS: BP 124/83; RESP 14; TEMP 97.5
[2022-05-05 12:04] VITALS: PULSE 78
[2022-05-05] MEDS: MULTIVITAMINS, THERA 1 EACH TAB PO SCH (13:36)
--- NOTE | 2022-05-05 18:00 | PCN ---
PROCEDURE NOTE PROCEDURE: Bronchoscopy; airway examination; therapeutic lavage; bronchoalveolar lavage, right upper lobe; brushes, right upper lobe. There was informed consent and universal time-out. Anesthesia provided was general anesthesia. The patient's procedure took place in room #1, [place] PREOPERATIVE DIAGNOSIS: Pneumonia versus cancer versus lung abscess. POSTOPERATIVE DIAGNOSIS: Pneumonia versus cancer versus lung abscess. DESCRIPTION OF PROCEDURE: After the patient was adequately sedated and being fully monitored, the bronchoscope was inserted through the left nostril and passed through the nasopharynx into the oropharynx. The hypopharynx was identified and topicalized. The hypopharyngeal structures, including anterior commissure, true cords, false cords, arytenoids, piriform sinuses, right and left valleculae and epiglottis, all appeared normal. After topicalization, the bronchoscope was pushed through glottic opening into the trachea. The trachea appeared normal. Tracheal dereck was sharp. Next, the left and right mainstem were topicalized. The left upper lobe proper and its 2 segments, the lingula and its 2 segments, and the left lower lobe and its 4 segments were all found to be normal. There was no mass or lesion noted. The mucosa appeared normal. There were minimal thin secretions. On the right side, the right upper lobe and its 3 segments, the right middle lobe and its 2 segments, and the right lower lobe and its 5 segments also were found to be normal. There was no dominant mass or tumor. There was no bleeding. The mucosa appeared relatively normal. Again, secretions were relatively thin. The bronchoscope was then wedged into the right upper lobe. We did brushes in the right upper lobe and the BAL in the right upper lobe. 40 mL of fluid was returned. The patient tolerated the procedure well. The bronchoscope was withdrawn. There was no immediate complication. The fluid will be sent for analysis as well as the brush tip. The patient will follow up with my partner. I did speak to the after the procedure and explained the procedure to the and let her know that everything went well with the procedure. Again, there was no immediate complication. MMODL / IJN: [id number] / MTDD
[2022-05-05 18:39] LABS: Appearance,BF Cloudy
--- NOTE | 2022-05-08 08:06 | P.DS ---
Providers Date of admission: 05/02/22 12:36 Attending physician: Rodriguez Marin Consults: 05/02/22 12:36 Consult Physician Routine Consulting Provider: Emiliano Velasquez Consult Reason/Comments: abnormal lung CT Do you want consulting provider notified?: Yes 05/02/22 14:03 Consult Physician Routine Consulting Provider: Hector Gonsales Consult Reason/Comments: pneumonia/lung abcess Do you want consulting provider notified?: Yes Primary care physician: Rodriguez Marin Hospital Course: This discharge summary 61-year-old white male who after having low-dose computed tomography scan of the chest was found to have possible malignancy. The patient was admitted and stabilized and then of having bronchoscopy. Dr. Paris at this time has felt that it is probably and encasement of an anaerobic infection. The patient was discharged after bronchoscopy and appropriate antibiotic treatment Patient Condition at Discharge: Fair Plan - Discharge Summary Discharge Rx Participant: No New Discharge Prescriptions: New Amoxic-Pot Clav 875-125Mg [Augmentin 875-125] 1 tab PO BID 6 Days #12 tab No Action EPINEPHrine (Auto Inject) [Epipen] 0.3 mg IM ONCE PRN PRN Reason: Anaphylaxis Discharge Medication List EPINEPHrine (Auto Inject) [Epipen] 0.3 mg IM ONCE PRN 05/02/22 [History] Amoxic-Pot Clav 875-125Mg [Augmentin 875-125] 1 tab PO BID 6 Days #12 tab 05/05/22 [Rx] Follow up Appointment(s)/Referral(s): Emiliano Velasquez MD [STAFF PHYSICIAN] - 05/29/22 2:00 pm Rodriguez Marin MD [Primary Care Provider] - 1-2 days Patient Instructions/Handouts: Amoxicillin/Clavulanate Potassium (By mouth), Pneumonitis (DC) Discharge Disposition: HOME SELF-CARE Plan of Treatment: Will need outpatient PET scan scheduled, this will be arranged by Dr. Velasquez's office, during follow up
--- NOTE | 2022-05-12 22:00 | P.PN ---
Subjective Progress Note Date: 05/04/22 Principal diagnosis: Pneumonia versus tumor Patient is a 61 year old male with significant history of smoking, did have a workup in the outpatient setting for cough that has been going on for about a month with evidence of right upper lobe necrotic tumor versus pneumonia. On today's evaluation that is 05/04/2022, the patient remains to be afebrile, the patient is breathing comfortably, and the patient denies having any chest pain he Did have a cough and is bringing up some sputum no hemoptysis. the patient denies abdominal pain and no diarrhea Objective - Vital Signs Vital signs: Vital Signs Temp 98.6 F 05/04/22 11:41 Pulse 90 05/04/22 15:33 Resp 16 05/04/22 11:41 BP 134/88 05/04/22 11:41 Pulse Ox 97 05/04/22 11:41 FiO2 Intake & Output 05/03/22 05/04/22 05/04/22 18:59 06:59 18:59 Intake Total 480 800 Balance 480 800 Weight 75.75 kg Intake: Intake, IV Titration 200 Amount Piperacillin-Tazobactam 3 200 .375 gm In Sodium Chloride 0.9% 100 ml @ 25 mls/hr IVPB Q8HR [facility] Rx# :[id number] Oral 480 600 Other: Voiding Method Toilet Toilet Toilet # Voids 5 2 - Exam GENERAL DESCRIPTION: Middle-age male lying in bed in no distress RESPIRATORY SYSTEM: Unlabored breathing , decreased breath sounds at bases HEART: S1 S2 regular rate and rhythm , ABDOMEN: Soft , no tenderness EXTREMITIES: No edema feet - Labs CBC & Chem 7: 05/04/22 04:23 05/04/22 04:23 Labs: Abnormal Lab Results - Last 24 Hours (Table) 05/04/22 05/04/22 Range/Units 04:23 04:23 MPV 9.0 L (9.5-12.2) fL Anion Gap 9.60 L (10.00-18.00) mmol/L Microbiology - Last 24 Hours (Table) 05/02/22 14:48 Blood Culture - Preliminary Blood No Growth after 48 hours 05/02/22 Unknown Gram Stain - Final Sputum Sputum Culture - Final Assessment and Plan (1) Abnormal CT of the chest Status: Acute Code(s): R93.89 - ABNORMAL FINDINGS ON DX IMAGING OF OTH BODY STRUCTURES SNOMED Code(s): 45489887081865589 Plan: 1patient presented to hospital with abnormal CT done in the outpatient setting with evidence of possible right upper lobe mass with air-fluid level in this patient with significant history of smoking no fever elevated white count and normal procalcitonin high clinical suspicious for malignancy. 2sputum culture has been obtained and currently pending 3patient at that is scheduled for bronchoscopy with transbronchial biopsy as well as cultures tomorrow morning 4patient to continue with empiric Zosyn while waiting for the workup to be completed Time with Patient: Less than 30
--- NOTE | 2022-05-12 22:02 | P.PN ---
Subjective Progress Note Date: 05/05/22 Principal diagnosis: Pneumonia versus tumor Patient is a 61 year old male with significant history of smoking, did have a workup in the outpatient setting for cough that has been going on for about a month with evidence of right upper lobe necrotic tumor versus pneumonia. On today's evaluation that is 05/05/2022, the patient denies any fever or any chills, the patient is breathing comfortably on room air, and the patient denies having any chest pain , the patient cough is decreased intensity and no hemoptysis is no abdominal pain and no diarrhea Objective - Vital Signs Vital signs: Vital Signs Temp 97.5 F L 05/05/22 11:33 Pulse 78 05/05/22 12:03 Resp 14 05/05/22 11:33 BP 124/83 05/05/22 11:33 Pulse Ox 94 L 05/05/22 11:33 FiO2 Intake & Output 05/04/22 05/05/22 05/05/22 18:59 06:59 18:59 Intake Total 580 500 50 Balance 580 500 50 Intake: IV 50 Intake, IV Titration 340 200 Amount Piperacillin-Tazobactam 3 100 200 .375 gm In Sodium Chloride 0.9% 100 ml @ 25 mls/hr IVPB Q8HR [facility]AVIK Rx# :[id number] Sodium Chloride 0.9% 1, 240 000 ml @ 20 mls/hr IV . Q24H BHAVIK Rx#:[id number] Oral 240 300 Other: Voiding Method Toilet Toilet Toilet # Voids 1 3 - Exam GENERAL DESCRIPTION: Middle-age male lying in bed in no distress RESPIRATORY SYSTEM: Unlabored breathing , decreased breath sounds at bases HEART: S1 S2 regular rate and rhythm , ABDOMEN: Soft , no tenderness EXTREMITIES: No edema feet - Labs CBC & Chem 7: 05/04/22 04:23 05/04/22 04:23 Labs: Microbiology - Last 24 Hours (Table) 05/02/22 14:48 Blood Culture - Preliminary Blood No Growth after 48 hours 05/02/22 Unknown Gram Stain - Final Sputum Sputum Culture - Final Assessment and Plan (1) Abnormal CT of the chest Status: Acute Code(s): R93.89 - ABNORMAL FINDINGS ON DX IMAGING OF OTH BODY STRUCTURES SNOMED Code(s): [id number] Plan: 1patient presented to hospital with abnormal CT done in the outpatient setting with evidence of possible right upper lobe mass with air-fluid level in this patient with significant history of smoking no fever elevated white count and normal procalcitonin high clinical suspicious for malignancy. 2sputum culture has been obtained and currently pending 3patient a status post bronchoscopy with transbronchial biopsy as well as cultures completely this morning and the patient was told possible no malignancy and pulmonary has cleared him for discharge 4patient will be given a 10 day course of oral Augmentin on discharge and close outpatient follow-up
== END 2022-05-05 15:15 | disposition home or self-care (01) ==
LOC: EC 10:16 → INTOOBSV 12:36 → 5NMEDONC 12:36 → UNDODISIN 05-05 15:15
PROVIDERS: ADMIT Family Medicine; ATTEND Family Medicine
DX: J98.4 Other disorders of lung (principal); J43.8 Other emphysema; E83.51 Hypocalcemia; E87.6 Hypokalemia; I10 Essential (primary) hypertension; F17.200 Nicotine dependence, unspecified, uncomplicated
CPT/HCPCS: 96365 ×3; 96366 ×4; 99285; 36415; 94640 ×8; 94760 ×2; 93005; 87798 ×3; 87496; 87498; 87529; 88104; 88108; 88305; 80053; 80048 ×2; 89050; 85025 ×3; 85610; 85730; 86140; 87040; 87252; 87502; 87634; 87070 ×2; 87205 ×2; 87116; 87102; 87206; 84145; 87635; 71045 ×2; 31623; 31624; G0378 ×4; S4990 ×2; J2543 ×4; J2250; J3010; J2704; J2001

== ENCOUNTER → 2022-06-06 | Outpatient (CLI) | payer BC ==
--- NOTE | 2022-06-06 08:59 | PE ---
EXAMINATION TYPE: PET CT fusion skull to thigh DATE OF EXAM: 06/06/2022 COMPARISON: Outside chest CT April 29, 2022 HISTORY: Solitary pulmonary nodule, abnormal CT . TECHNIQUE: Following the intravenous administration of 11.9 mCi of F-18 FDG, whole body images are p erformed from the skull base to the midthigh. Images are reviewed on the computer in the coronal, ax ial, and sagittal planes. Reconstructed rotating images are created on independent workstation and r eviewed on the computer. A localization and attenuation correction CT is performed in conjunction w ith the PET scan. Blood glucose level equals 106 SCAN: Initial Scan FINDINGS: SKULL BASE AND NECK: No areas of abnormal hypermetabolic uptake. CHEST, MEDIASTINUM, AND HILAR REGION: Persistent large bulla in the right lung apex with largest bull a posteriorly having increasing dependent fluid. Subtle masslike consolidation anterior to this and s urrounding this dominant bulla with air-fluid level, mild hypermetabolic uptake all with Max SUV less than 2.5. No areas of abnormal hypermetabolic uptake throughout the thorax. ABDOMEN AND PELVIS: No areas of abnormal hypermetabolic uptake. Normal excretion. No adrenal masses. OSSEOUS STRUCTURES: No areas of abnormal hypermetabolic uptake. OTHER CT: As shaped scoliosis is present. Mild to moderate calcified plaque bilateral carotid bulb le darren. Mild to moderate underlying emphysematous change redemonstrated. Grade 1 anterolisthesis L5 on S1. Small fat-containing right inguinal hernia. Partial visualization o f right scrotal fluid collection or small hydrocele. IMPRESSION: Persistent right upper lung bulla with dominant bulla having air-fluid level and surround ing soft tissue density. No abnormal hypermetabolic uptake to suggest cavitary malignancy. Findings f avor an infectious and/or inflammatory etiology. Correlate clinically.
== END | disposition home or self-care (01) ==
LOC: RADXRMAIN 06:33
PROVIDERS: ATTEND Internal Medicine
DX: R91.8 Other nonspecific abnormal finding of lung field (principal)
CPT/HCPCS: 78815; A9552

== ENCOUNTER → 2022-10-28 | Outpatient (CLI) | payer BC ==
[2022-10-28 14:43] LABS: Basophils # (A) 0.07 X 10*3/uL (0.00-0.10); Basophils % (A) 0.8 %; Eosinophils % (A) 2.4 %; HCT 51.9 % (39.6-50.0); HGB 17.5 g/dL (13.0-17.0); Immature Grans, Automated 0.4 %; Lymphocytes # (A) 1.88 X 10*3/uL (0.90-5.00); Lymphocytes % (A) 22.5 %; MCH 31.6 pg (27.0-32.0); MCHC 33.7 g/dL (32.0-37.0); MCV 93.9 fL (80.0-97.0); Mean Platelet Volume 9.9 fL (9.5-12.2); Monocytes # (A) 0.57 X 10*3/uL (0.20-1.00); Monocytes % (A) 6.8 %; NRBC Per 100 WBC 0 /100 WBCS (0.0-0.0); Neutrophils # (A) 5.61 X 10*3/uL (1.80-7.70); Neutrophils % (A) 67.1 %; Platelet Count 241 X 10*3/uL (140-440); RBC 5.53 X 10*6/uL (4.40-5.60); RDW 13.1 % (11.5-14.5); WBC 8.36 X 10*3/uL (4.50-10.00)
[2022-10-28 15:57] LABS: ALT 21 U/L (10-49); AST 20 U/L (14-35); African American GFR (CKD) 94.4 (60.0-200.0); Albumin 4.6 g/dL (3.8-4.9); Albumin/Globulin Ratio 1.92 (1.60-3.17); Alkaline Phosphatase 80 U/L (41-126); Blood Urea Nitrogen 22.8 mg/dL (9.0-27.0); C Reactive Protein <0.30 mg/dL (0.00-0.80); Calcium 9.5 mg/dL (8.7-10.3); Carbon Dioxide 27.3 mmol/L (20.0-27.5); Chloride 102 mmol/L (96-109); Globulin 2.4 g/dL (1.6-3.3); Glucose 92 mg/dL (70-110); Non-African American GFR(CKD) 81.4 (60.0-200.0); Potassium 5.2 mmol/L (3.5-5.5); Sodium 139 mmol/L (135-145)
== END | disposition home or self-care (01) ==
LOC: LABWHC1 10:32
PROVIDERS: ATTEND Internal Medicine Infectious Disease
DX: B44.9 Aspergillosis, unspecified (principal)
CPT/HCPCS: 36415; 80053; 84145; 85025; 86140